=== PATIENT | female | born 1990 | race Two or more races ===

== ENCOUNTER 2022-04-08 12:06 | Inpatient (IN) ==
[2022-04-08] MEDS ORDERED: BETAMETH SOD PHOS/ACETATE IA 6 MG/ML IM STA (12:47)
[2022-04-08] MEDS ORDERED: LACTATED RINGER'S 500 ML IV ONE (12:56)
[2022-04-08 13:21] LABS: Basophils # (auto) 0.02 K/uL (0-0.2); Basophils % (auto) 0.2 %; Eosinophils # (auto) 0.05 K/uL (0-0.50); Eosinophils % (auto) 0.6 %; Hematocrit (blood only) 35.8 % (34.1-44.9); Hemoglobin 12.2 g/dl (12.0-16.0); Immature Granulocytes # (auto) 0.04 K/uL (0.00-0.02); Immature Granulocytes % (auto) 0.5 %; Lymphocytes # (auto) 1.42 K/uL (1.2-3.4); Lymphocytes % (auto) 17.2 %; Mean Corpuscular Hemoglobin 31.4 pg (25.0-34.0); Mean Corpuscular Hgb Conc 34.1 g/dL (32.0-36.0); Mean Corpuscular Volume 92.3 fL (80.0-100.0); Mean Platelet Volume 11.7 fL (9.4-12.3); Monocytes # (auto) 0.67 K/uL (0.24-0.82); Monocytes % (auto) 8.1 %; Neutrophils # (auto) 6.06 K/uL (1.4-6.5); Neutrophils % (auto) 73.4 %; Platelet Count 206 K/uL (130-400); RDW Coefficient of Variation 14.1 % (11.5-14.5); RDW Standard Deviation 47.6 fL (36.4-46.3); Red Blood Count 3.88 M/uL (3.93-5.22); White Blood Count 8.26 K/ul (4.8-10.8)
[2022-04-08] MEDS: LACTATED RINGER'S 1,000 ML IV PRN ×2 (13:30→17:50)
--- NOTE | 2022-04-08 13:45 | History & Physical Report ---
Date of Service April 08, 2022 Assessment & Plan (1) contractions: Plan: Will monitor FHT, contractions, and plan for re-exam of cervix in 2 hours. Will give IV fluids, steroids for lung maturity . History of Present Illness Chief Complaint: contractions Primary Care Provider: PHOEBE PCP 31yo @ 34 06/28, presented to L&D today with contractions. Started with low back pains yesterday, which resolved, and then this morning started feeling abdominal/pelvic pains and had pink discharge followed by brown discharge. + movement. No bright red blood. No leaking fluid. No recent illness. No recent intercourse. Has only had a small amount of food today. Drinking water. and Delivery Plans COVID POSITIVE 09/27/21 lsil Pap/ +HPV @ 16wk visit. *Recommend Colpo--done 12/21, small endocervical polyp noted, no significant cervical abnl, path negative *pap with typed HPV and colpo pp. Repeat pap & colposcopy after delivery GDM w/16wk glucola *Begin monthly Growth US's @24wks Left renal dilation (moderate @ 20wk) in male fetus MFM consult (pt declined at 24wk) MFM consult (accepted at 28wk) @ [facility] on 02/08/22 *significant hydronephrosis, she is to see Dr. Leo- pediatric urologist at [facility] *follow up monthly renal size and DVP MFM consult with u/s @ [facility] 03/21/22 - Q4 week growth and renal eval. Peds urology consult 03/26/22 - Note in Chart - Can delivery at [facility] unless bladder outlet obstruction is suspected - Not suspected by imaging to date - renal US - Recommended that peds notify Peds Urology at [facility] about imaging results f/u u/s with [facility]-04/19/22 Allergies Allergy/AdvReac Type Severity Reaction Status Date / Time No Known Allergies Allergy Verified 04/04/22 13:40 Home Medications Medication Instructions Recorded Confirmed Type prenat.vits,archie,por-icxl-ahkxw 1 tab PO DAILY 11/16/21 04/04/22 History ferrous sulfate [Iron (ferrous PO 01/29/22 04/04/22 History sulfate)] omeprazole 20 mg capsule,delayed See Rx Instructions .Route 04/01/22 04/04/22 Rx release .COMPLEX #30 caps Patient History Family History (Updated 11/16/21 @ 14:21 by Maddy Venegas) Mother Diabetes Dyslipidemia Hypertension Father Diabetes Grandmother Myocardial infarction Uncle Myocardial infarction Social History (Updated 11/16/21 @ 14:23 by Maddy Venegas) Smoking Status: Never smoker Hx Alcohol Use: No Hx Substance Use: No Preferred Language: Hebrew Communication Ability: Effective Marketing Account Executive Required: No Beliefs That Will Affect Care: Scientology Scientology Beliefs: Baptist marital status: marital status details: Aunt Yolanda Camargo [phone] Current Living Situation: Alone Current Living Situation Comment: in miliary in [facility] Assistive Devices: Glasses Review of Systems All systems reviewed & are unremarkable except as noted in HPI & below Physical Exam Physical Exam: FHT Cat 1 [place] Q 2-4 min Sterile spec exam: cervical mucus at os. No red blood. No evidence of rupture. Digital exam: cervix 1/50/-3 Limited bedside US: cephalic, anterior placenta. + movement. + cardiac activity. Constitutional: WD/WN, vitals as above Respiratory: no respiratory distress Cardiovascular: Rate/Rhythm: regular rate and regular rhythm Gastrointestinal (Abdomen): Inspection/Auscultation: abdomen normal to inspection Percussion/Palpation: abdomen soft; abdomen nontender Gravid. No s/s chorio or abruption. Skin: no rashes, warm and dry Psychiatric: A+Ox3, euthymic affect Results & Data ([facility]) Vital Signs (Past 12 Hours) Vital Signs Temp Pulse BP Pulse Ox 04/08/22 13:38 108 H 95 04/08/22 13:33 104 H 97 04/08/22 13:28 105 H 95 04/08/22 13:23 106 H 98 04/08/22 13:18 113 H 98 04/08/22 13:13 108 H 96 04/08/22 13:08 116 H 95 04/08/22 13:03 112 H 95 04/08/22 12:58 120 H 95 04/08/22 12:53 112 H 96 04/08/22 12:48 125 H 94 04/08/22 12:46 121 H 126/81 04/08/22 12:43 115 H 95 04/08/22 12:40 126 H 123/80 04/08/22 12:38 115 H 96 04/08/22 12:35 107 H 128/81 04/08/22 12:33 118 H 96 04/08/22 12:31 120 H 116/71 04/08/22 12:28 121 H 94 04/08/22 12:25 123 H 111/66 04/08/22 12:19 36.7 C 117 H 130/80 Coding Level of Care Code None Diagnoses contractions O47.00
--- NOTE | 2022-04-08 15:54 | Obstetrical Progress Note ---
Date of Service April 08, 2022 Subjective Patient states she is still feeling ctx, not in a regular pattern, but feeling the contractions themselves stronger. A small amount of pink discharge since first exam. FHT Cat 1 [place] Q 2-8 min Cervix exam unchanged /-3 - very uncomfortable exam for patient. She has not eaten much today - will allow patient to eat and continue to monitor status. We discussed that at this time, she is kailash but cervix has not made change. If she does, in fact, returned telephone equipment appraiser to be in labor, we discussed the risks vs benefits of staying at [facility] vs transfer to a tertiary hospital with a NICU. I have discussed the case with on-call furniture installer, Dr Chiu. He feels that if baby is doing well after delivery, he might not need transfer. However, if baby ends up needing a higher level of nursery support, baby would need to be transferred after delivery. Sometimes 34w babies do well after delivery, sometimes they need additional care. Patient would prefer to stay at [facility] if possible, as her access to Sarah would be challenging - she lives here and her mother is staying with her, but they do not have a car. She would need to depend on friends from her graduate program to help her with transport. JOSHUA is not in the [place] right now - he serves in the in [place], and is unable to take leave until just before pt's due date. We discussed that there is a good chance the baby may need to be transferred to a NICU after delivery due to prematurity, but we do not know this for sure. Will plan for her to have a meal and continue monitoring FHT and tocometer. She agrees with this plan. Results & Data ([facility]) Vital Signs (Past 12 Hours) Vital Signs Temp Pulse BP Pulse Ox 04/08/22 15:41 106 H 04/08/22 15:41 132/73 04/08/22 13:38 108 H 95 04/08/22 13:33 104 H 97 04/08/22 13:28 105 H 95 04/08/22 13:23 106 H 98 04/08/22 13:18 113 H 98 04/08/22 13:13 108 H 96 04/08/22 13:08 116 H 95 04/08/22 13:03 112 H 95 04/08/22 12:58 120 H 95 04/08/22 12:53 112 H 96 04/08/22 12:48 125 H 94 04/08/22 12:46 121 H 126/81 04/08/22 12:43 115 H 95 04/08/22 12:40 126 H 123/80 04/08/22 12:38 115 H 96 04/08/22 12:35 107 H 128/81 04/08/22 12:33 118 H 96 04/08/22 12:31 120 H 116/71 04/08/22 12:28 121 H 94 04/08/22 12:25 123 H 111/66 04/08/22 12:19 36.7 C 117 H 130/80 PG Care Time/CCT Total # of Minutes Spent Total Time Spent with Patient: Total time spent is greater than 50% in coordination of care (as documented) at patient's floor/unit and/or counseling patient: Coding Level of Care Code None
[2022-04-08] MEDS ORDERED: ACETAMINOPHEN 500 MG TAB PO PRN (20:01)
--- NOTE | 2022-04-08 20:05 | Obstetrical Progress Note ---
Date of Service April 08, 2022 Subjective Patient is at times very uncomfortable with painful contractions. At other times, feels ok. FHT Cat 1 [place] - has some runs of Q2 min ctx, then at times spaces ctx out to Q 8 min Cervix unchanged. /-3. Exam very uncomfortable. Some cervical mucus came out with glove. Given her contractions, and her discomfort, will continue monitoring and will plan to recheck in AM. Patient is anxious about labor. She is aware that if she turns out to be in labor, if the baby delivers here, there is a possibility of him needing transfer to a larger hospital with NICU, she would prefer that baby be transferred after delivery if needed rather than her being transferred now. Results & Data ([facility]) Vital Signs (Past 12 Hours) Vital Signs Temp Pulse Resp BP Pulse Ox 04/08/22 19:22 36.7 C 18 04/08/22 19:28 122 H 04/08/22 19:28 111/70 04/08/22 19:17 121 H 04/08/22 19:17 131/70 04/08/22 15:41 106 H 04/08/22 15:41 132/73 04/08/22 13:38 108 H 95 04/08/22 13:33 104 H 97 04/08/22 13:28 105 H 95 04/08/22 13:23 106 H 98 04/08/22 13:18 113 H 98 04/08/22 13:13 108 H 96 04/08/22 13:08 116 H 95 04/08/22 13:03 112 H 95 04/08/22 12:58 120 H 95 04/08/22 12:53 112 H 96 04/08/22 12:48 125 H 94 04/08/22 12:46 121 H 126/81 04/08/22 12:43 115 H 95 04/08/22 12:40 126 H 123/80 04/08/22 12:38 115 H 96 04/08/22 12:35 107 H 128/81 04/08/22 12:33 118 H 96 04/08/22 12:31 120 H 116/71 04/08/22 12:28 121 H 94 04/08/22 12:25 123 H 111/66 04/08/22 12:19 36.7 C 117 H 130/80 PG Care Time/CCT Total # of Minutes Spent Total Time Spent with Patient: Total time spent is greater than 50% in coordination of care (as documented) at patient's floor/unit and/or counseling patient: Coding Level of Care Code None
[2022-04-08] MEDS ORDERED: BUTORPHANOL TARTRATE 1 MG/ML VIAL IV PRN (21:53)
[2022-04-09] MEDS ORDERED: MoRPHine SULFATE 10 MG/ML CARP/VIAL IM STA (00:35)
[2022-04-09] MEDS ORDERED: PROMETHAZINE HCL INJ 25 MG/ML 1 ML VIAL IM STA (00:36)
[2022-04-09] MEDS ORDERED: ePHEDrine sulfate 50 MG/ML AMP ONE (02:59)
[2022-04-09] MEDS ORDERED: BUPIVACAINE 0.25% 30 ML VIAL ONE (02:59)
[2022-04-09] MEDS ORDERED: LIDOCAINE 2%/EPINEPHRINE 1:200,000 20 ML SDV ONE (02:59)
[2022-04-09] MEDS ORDERED: fentaNYL 2MCG/ML ROPIVACAINE 1.25MG/ML 100 ML BAG EPI ONE (02:59)
[2022-04-09] MEDS ORDERED: fentaNYL citrate 100 MCG/2 ML VIAL ONE (02:59)
[2022-04-09] MEDS ORDERED: SODIUM CHLORIDE 0.9% INJ 10 ML VIAL ONE (02:59)
--- NOTE | 2022-04-09 03:03 | Labor Progress Brief Note ---
Date of Service April 09, 2022 Subjective Patient has been feeling significant pain over the past few hours with ctx. At approx 12:30a she was reporting severe pain and was examined by RN while I was in , found to have the same cervical exam as my prior check (/- 3) and was given morphine/phenergan in hopes of making her more comfortable and allowing her to get rest. She now is reporting more pain, feeling like it is worsening, and asked for me to see her an examine her again. I examined her cervix, and found her to be approximately 8/100/0 - difficult exam due to her pain. This is significantly different than exam by RN at 12:30a. Will request epidural. PCN G for GBS unknown. Results & Data ([facility]) Vital Signs (Past 12 Hours) Vital Signs Temp Pulse Resp BP Pulse Ox 04/08/22 19:22 36.7 C 18 04/09/22 02:55 99 H 100 04/09/22 02:50 93 H 95 04/09/22 02:51 91 H 93 04/09/22 02:45 103 H 98 04/09/22 02:40 111 H 99 04/09/22 02:35 110 H 98 04/09/22 02:33 91 H 92 04/09/22 02:30 109 H 97 04/09/22 02:25 109 H 97 04/09/22 02:20 112 H 97 04/09/22 02:15 115 H 97 04/09/22 02:10 99 04/09/22 02:10 119 H 04/09/22 02:10 95 H 93 04/09/22 02:05 94 H 97 04/09/22 02:02 101 H 92 04/09/22 02:00 114 H 98 04/09/22 01:55 117 H 97 04/09/22 01:54 100 H 90 04/09/22 01:50 107 H 95 04/09/22 01:45 98 H 96 04/09/22 01:40 118 H 96 04/09/22 01:35 113 H 96 04/09/22 01:30 120 H 97 04/09/22 01:25 119 H 98 04/09/22 01:20 123 H 98 04/09/22 01:15 109 H 97 04/09/22 01:10 101 H 98 04/09/22 01:05 113 H 98 04/09/22 01:00 121 H 98 04/09/22 00:55 116 H 98 04/09/22 00:50 119 H 97 04/09/22 00:45 117 H 98 04/09/22 00:40 118 H 96 04/08/22 22:29 18 04/08/22 22:29 36.5 C 18 04/08/22 22:29 118 H 04/08/22 22:29 119/68 04/08/22 19:28 18 04/08/22 19:28 36.7 C 18 04/08/22 19:28 122 H 04/08/22 19:28 111/70 04/08/22 19:17 121 H 04/08/22 19:17 131/70 04/08/22 15:41 106 H 04/08/22 15:41 132/73 Coding Level of Care Code None
[2022-04-09] MEDS ORDERED: PENICILLIN G POTASSIUM 6 MU in DEXTROSE 5% 250 ML IV STA (03:04)
[2022-04-09] MEDS ORDERED: fentaNYL 2MCG/ML ROPIVACAINE 1.25MG/ML 100 ML BAG EPI PRN (03:27)
[2022-04-09] MEDS ORDERED: NALOXONE HCL 1 MG in SODIUM CHLORIDE 0.9% 1000ML 1,000 ML IV PRN (03:27)
[2022-04-09] MEDS ORDERED: NALOXONE HCL 0.4 MG/1 ML VIAL/CARP IV PRN (03:27)
[2022-04-09] MEDS ORDERED: NALBUPHINE HCL INJ 10 MG/ML AMP IV PRN (03:27)
[2022-04-09] MEDS ORDERED: diphenhydrAMINE 50 MG/ML VIAL IV PRN (03:27)
[2022-04-09] MEDS ORDERED: ePHEDrine sulfate 50 MG/ML AMP IV PRN (03:27)
--- NOTE | 2022-04-09 03:27 | Anesthesiology Consultation ---
Date of Service April 09, 2022 Assessment & Plan (1) Encounter for pre-operative examination: Chart Review Chart Review: Patient NOT seen in Pre Admission Testing and Acceptable Risk for Labor Epidural Consults Requested none History Height/Weight Height: 5 ft 1 in Weight: 69.853 kg Allergies Allergy/AdvReac Type Severity Reaction Status Date / Time No Known Allergies Allergy Verified 04/04/22 13:40 Medications Home Medications Medication Instructions Recorded Confirmed Last Taken prenat.vits,archie,kon-wtav-skrnb 1 tab PO DAILY 11/16/21 04/04/22 Unknown ferrous sulfate [Iron (ferrous PO 01/29/22 04/04/22 Unknown sulfate)] omeprazole 20 mg capsule,delayed See Rx Instructions .Route 04/01/22 04/04/22 Unknown release .COMPLEX #30 caps Active Medications Generic Name Dose Route Start Last Admin Trade Name Freq PRN Reason Stop Dose Admin Acetaminophen 1,000 mg 04/08/22 20:01 04/08/22 20:17 Acetaminophen 500 Mg Tab PO 05/08/22 20:00 1,000 mg Q8H PRN Administration Pain Butorphanol Tartrate 1 mg 04/08/22 21:53 04/08/22 21:58 Butorphanol Tartrate 1 Mg/Ml Vial IV 05/08/22 21:52 1 mg Q2HWA PRN Administration Pain Lactated Ringer's 1,000 mls @ 125 mls/hr 04/08/22 12:47 04/09/22 03:01 Lr IV 05/08/22 12:46 Infused .Q8H PRN Infusion L&D Protocol Protocol Past Family History Family History Mother Diabetes Dyslipidemia Hypertension Father Diabetes Grandmother Myocardial infarction Uncle Myocardial infarction Social History Smoking Status: Never smoker Hx Alcohol Use: No Hx Substance Use: No Physical Exam Vital Signs Last Vital Signs Temp 97.7 F 04/08/22 22:29 Pulse 114 H 04/09/22 03:25 Resp 18 04/08/22 22:29 BP 119/68 04/08/22 22:29 Pulse Ox 98 04/09/22 03:25 Testing Laboratory Results 04/08/22 13:05 04/08/22 13:05
[2022-04-09] MEDS: LACTATED RINGER'S 1,000 ML IV PRN (03:28)
[2022-04-09] MEDS ORDERED: PENICILLIN G POTASSIUM 3 MU in DEXTROSE 5% 100 ML IV PRN (06:05)
[2022-04-09] MEDS: OXYTOCIN 30 UNITS/500ML NSS IV ONE ×2 (07:58→10:55)
[2022-04-09] MEDS ORDERED: LIDOCAINE 1% LOCAL 20 ML VIAL ONE ×2 (08:02→10:32)
[2022-04-09] MEDS ORDERED: OXYTOCIN 30 UNITS/500 ML BAG IV PRN (08:27)
[2022-04-09] MEDS ORDERED: DIPHTHERIA/TETANUS/PERTUSSIS 0.5mL SYR/VIAL (Age 7+yrs) IM ONE (08:27)
[2022-04-09] MEDS ORDERED: bisacodyL 10 MG SUPP PR PRN (08:27)
[2022-04-09] MEDS ORDERED: BENZOCAINE 20% AER SPR 82.5 GM CAN EXT PRN (08:27)
[2022-04-09] MEDS ORDERED: HYDROCORTISONE ACETATE 25 MG SUPP PR PRN (08:27)
--- NOTE | 2022-04-09 08:32 | Delivery Summary ---
Vaginal Delivery Summary Date of Service April 09, 2022 Vaginal Delivery Summary and 2nd Degree LAC Vaginal Delivery Summary: Pre-delivery diagnoses: 31yo @ 34 5/7, labor, GDMA1, renal dilation Post-delivery diagnoses: same Procedure: spontaneous vaginal delivery, repair of 2nd degree perineal laceration Surgeon: Ashley Clayton DO Complications: none Findings: Viable male . Apgars: 9/9. Weight pending, please see nursery records. Estimated blood loss: 300ml Description of delivery: The patient progressed to complete with epidural anesthesia. She then began to push. She spontaneously vaginally delivered a viable from the cephalic presentation. The head delivered in KONSTANTIN position. The anterior shoulder delivered, followed by the posterior shoulder, followed by the body. No nuchal. The baby was placed on mother's abdomen and a spontaneous cry was heard. Delayed cord clamping was employed, and the cord was doubly clamped and cut. A segment was retained for cord gases. Cord blood was obtained. The placenta was delivered spontaneously intact with a 3-vessel cord. The uterus and vagina were swept of clots and debris. IV pitocin was given. The uterus became firm. The cervix, vagina, and perineum were inspected and a 2nd degree perineal laceration was noted and repaired with 3-0 Vicryl in standard fashion. There was a small amount of oozing from the perineal laceration - an additional zpzxwq-lb-llcil stitch was used, however each time the needle passed through the edematous tissue, it continued oozing further. Mere powder and direct pressure from 3 Raytec sponges was used to obtain hemostasis. Excellent hemostasis was observed. Will plan to keep sponges (and pressure) in place for the recovery time, will continue epidural during that time, and will plan to remove and reevaluate at that time. The mother and baby are recovering in stable and good condition in the room. Sponge, needle and instrument counts were correct x 2. Ashley Clayton DO [facility] Vaginal Delivery Charge Vaginal Delivery Codes: 43805 global code for the antepartum, delivery, and post- Delivery Type Details: and 2nd Degree LAC
[2022-04-09 09:06] LABS: Base Excess Cord Arterial Bld -5.5 mEq/L (-9-1.8); CO2 Cord Arterial Blood 54 mmHg (39.1-73.5); HCO3 Cord Arterial Blood 23 mmol/L (19.7-28.5); Oxygen Sat Cord Arterial Blood < 60.0 % (<60); PO2 Cord Arterial Blood 26 mmHg (4.1-31.7); pH Cord Arterial Blood 7.23 (7.1-7.38)
[2022-04-09 09:07] LABS: Base Excess Cord Venous Blood -5.1 mEq/L (-7.7-1.9); Cord Venous Blood HCO3 21 mmol/L (18.4-26.8); Cord Venous Blood PCO2 43 mmHg (30.4-57.2); Cord Venous Blood PO2 33 mmHg (14.1-43.3); O2 Saturation Cord Venous Bld 64.6 % (<68)
--- NOTE | 2022-04-09 10:50 | Obstetrical Progress Note ---
Date of Service April 09, 2022 Assessment & Plan Admission and Anticipated Discharge Date Admission Date: April 09, [address] Coleman had signed out earlier and spoken about of bleeding area on the posterior perineum she had left some sponges for packing and used Mere I evaluated after 2 hours note we let the epidural continue to run I examined there was a gap in the vaginal tissue just at the hymenal ring area that was bleeding discussed with the patient and we prepped the area and injected local anesthetic into the area and then closed with a 3-0 Vicryl several mjwroj-dk-fdaff sutures finally resulted in full hemostasis patient tolerated well sponge and instrument counts correct I would assess an extra 20 mL of blood loss at this time Results & Data ([facility]) Vital Signs (Past 12 Hours) Vital Signs Temp Pulse Resp BP Pulse Ox 04/09/22 10:43 129 H 103/53 L 04/09/22 10:28 127 H 112/51 L 04/09/22 10:13 116 H 105/58 L 04/09/22 09:58 116 H 106/61 04/09/22 09:43 123 H 102/59 L 04/09/22 09:28 122 H 105/60 04/09/22 09:13 123 H 109/62 04/09/22 08:58 117 H 105/62 04/09/22 08:50 115 H 112/62 04/09/22 08:30 121 H 92/58 L 04/09/22 08:13 116 H 135/70 04/09/22 08:01 121 H 100 04/09/22 07:58 122 H 128/60 04/09/22 07:56 121 H 100 04/09/22 07:51 126 H 100 04/09/22 07:46 139 H 99 04/09/22 07:44 82 L 04/09/22 07:44 133 H 04/09/22 07:44 134 H 134/61 04/09/22 07:41 119 H 98 04/09/22 07:39 122 H 94 04/09/22 07:36 98.2 F 132 H 18 100 04/09/22 07:31 125 H 98 04/09/22 07:29 150 H 191/98 H 04/09/22 07:26 127 H 100 04/09/22 07:25 123 H 87 L 04/09/22 07:21 122 H 97 01/17/23 07:16 125 H 100 04/09/22 07:13 122 H 115/75 04/09/22 07:11 123 H 100 04/09/22 07:06 127 H 100 04/09/22 07:01 124 H 100 04/09/22 06:59 118 H 107/55 L 04/09/22 06:56 124 H 100 04/09/22 06:51 117 H 100 04/09/22 06:46 110 H 100 04/09/22 06:43 111 H 112/57 L 04/09/22 06:41 115 H 100 04/09/22 06:36 114 H 100 04/09/22 06:31 116 H 100 04/09/22 06:30 114 H 129/75 04/09/22 06:26 114 H 100 04/09/22 06:21 120 H 99 04/09/22 06:16 119 H 100 04/09/22 06:15 98.1 F 123 H 18 114/53 L 04/09/22 06:11 94 04/09/22 06:11 118 H 04/09/22 06:11 116 H 92 04/09/22 06:05 114 H 100 04/09/22 06:00 104 H 100 04/09/22 05:58 107 H 117/56 L 04/09/22 05:55 105 H 99 04/09/22 05:50 105 H 100 04/09/22 05:45 104 H 100 04/09/22 05:44 112 H 127/61 04/09/22 05:40 113 H 100 04/09/22 05:35 106 H 100 04/09/22 05:30 106 H 100 04/09/22 05:29 110 H 128/60 04/09/22 05:25 110 H 100 04/09/22 05:20 111 H 100 04/09/22 05:15 112 H 100 04/09/22 05:14 112 H 127/64 04/09/22 05:10 106 H 100 04/09/22 05:05 106 H 100 04/09/22 05:00 101 H 100 04/09/22 04:59 106 H 119/60 93 04/09/22 04:55 113 H 92 04/09/22 04:52 107 H 84 L 04/09/22 04:50 115 H 100 04/09/22 04:45 114 H 100 04/09/22 04:44 120 H 107/55 L 04/09/22 04:40 114 H 99 04/09/22 04:35 111 H 100 04/09/22 04:30 110 H 100 04/09/22 04:27 117 H 129/61 04/09/22 04:25 108 H 99 04/09/22 04:23 111 H 121/58 L 04/09/22 04:20 113 H 96 04/09/22 04:18 110 H 104/54 L 04/09/22 04:15 109 H 100 04/09/22 04:11 113 H 114/60 04/09/22 04:10 114 H 99 04/09/22 04:08 110 H 114/59 L 04/09/22 04:05 103 H 99 04/09/22 04:06 90 93 04/09/22 04:02 108 H 129/68 04/09/22 04:00 116 H 99 04/09/22 03:55 118 H 99 04/09/22 03:56 115 H 120/63 04/09/22 03:54 112 H 117/55 L 04/09/22 03:52 114 H 124/66 04/09/22 03:50 112 H 119/65 100 04/09/22 03:48 110 H 116/62 04/09/22 03:45 114 H 100 04/09/22 03:46 115 H 129/74 04/09/22 03:40 116 H 99 04/09/22 03:35 107 H 97 04/09/22 03:32 102 H 91 04/09/22 03:30 116 H 98 04/09/22 03:25 98 04/09/22 03:25 114 H 04/09/22 03:25 101 H 91 04/09/22 03:20 109 H 99 04/09/22 03:18 104 H 92 04/09/22 03:15 113 H 96 04/09/22 03:10 116 H 98 04/09/22 03:05 97 H 100 04/09/22 03:00 85 L 04/09/22 03:00 100 H 04/09/22 03:00 97 H 89 L 04/09/22 02:55 99 H 100 04/09/22 02:50 93 H 95 04/09/22 02:51 91 H 93 04/09/22 02:45 103 H 98 04/09/22 02:40 111 H 99 04/09/22 02:35 110 H 98 04/09/22 02:33 91 H 92 04/09/22 02:30 109 H 97 04/09/22 02:25 109 H 97 04/09/22 02:20 112 H 97 04/09/22 02:15 115 H 97 04/09/22 02:10 99 04/09/22 02:10 119 H 04/09/22 02:10 95 H 93 04/09/22 02:05 94 H 97 04/09/22 02:02 101 H 92 04/09/22 02:00 114 H 98 04/09/22 01:55 117 H 97 04/09/22 01:54 100 H 90 04/09/22 01:50 107 H 95 04/09/22 01:45 98 H 96 04/09/22 01:40 118 H 96 04/09/22 01:35 113 H 96 04/09/22 01:30 120 H 97 04/09/22 01:25 119 H 98 04/09/22 01:20 123 H 98 04/09/22 01:15 109 H 97 04/09/22 01:10 101 H 98 04/09/22 01:05 113 H 98 04/09/22 01:00 121 H 98 04/09/22 00:55 116 H 98 04/09/22 00:50 119 H 97 04/09/22 00:45 117 H 98 04/09/22 00:40 118 H 96 PG Care Time/CCT Total # of Minutes Spent Total Time Spent with Patient: Total time spent is greater than 50% in coordination of care (as documented) at patient's floor/unit and/or counseling patient: Coding Level of Care Code None
[2022-04-09] MEDS: IBUPROFEN 600 MG TAB PO PRN ×2 (12:00→17:55)
--- NOTE | 2022-04-09 12:34 | Anesthesia Procedure Note ---
Date of Service April 09, 2022 Anesthesia Post Epidural Note Vital Signs Vital Signs: Temp Pulse Resp BP Pulse Ox 98.2 F 114 H 18 119/75 100 04/09/22 07:36 04/09/22 12:17 04/09/22 07:36 04/09/22 12:17 04/09/22 08:01 Pain Intensity Abdomen: Pain Intensity: 0 Notes Mental Status: alert / awake / arousable and participated in evaluation Nausea / Vomiting: adequately controlled Pain: adequately controlled Airway Patency, RR, SpO2: stable & adequate BP & HR: stable & adequate Hydration State: stable & adequate Neuraxial Anesthesia: was administered and sensory block is resolving Anesthetic Complications: no major complications apparent and Pt Satisfied with anesthetic care Epidural: Removed without complications and With tip intact
[2022-04-09] MEDS: ACETAMINOPHEN 325 MG TAB PO PRN ×2 (14:53→21:52)
[2022-04-09] MEDS: DOCUSATE SODIUM 100 MG CAP PO SCH (20:52)
[2022-04-10] MEDS: IBUPROFEN 600 MG TAB PO PRN ×5 (03:09→20:56)
--- NOTE | 2022-04-10 06:38 | Obstetrical Progress Note ---
Date of Service <Libby Hughes MD - Last Filed: 04/10/22 06:58> April 10, 2022 Assessment & Plan <Libby Hughes MD - Last Filed: 04/10/22 06:58> (1) care following vaginal delivery: 31y o/ @ 34 4/7, presented to L&D with contractions now PPD1. GBS + - treated with 1 dose of abx during labor. Tolerating PO. Encourage ambulation. Satisfactory post progress. Melisa Zhong MS3 contributed to the history and physical of this note. <Sandra Whittington MD, FACOG - Last Filed: 04/10/22 08:47> (1) care following vaginal delivery: Subjective <Libby Hughes MD - Last Filed: 04/10/22 06:58> Ambulation: ambulating normally Voiding: no voiding problems Passing Gas:: Yes Diet Tolerance:: regular diet Lochia:: Small Feeding Type:: breast feeding Physical Exam <Libby Hughes MD - Last Filed: 04/10/22 06:58> Constitutional WD/WN, vitals as above Respiratory no increased work of breathing Cardiovascular clinically well perfused Psychiatric A+Ox3, euthymic affect Results & Data ([facility]) <Libby Hughes MD - Last Filed: 04/10/22 06:58> Vital Signs (Past 12 Hours) Vital Signs Temp Pulse Resp BP Pulse Ox O2 Del Method 04/10/22 03:06 36.6 C 108 H 18 109/70 99 Room Air 04/09/22 22:57 36.7 C 116 H 22 103/69 97 Room Air 04/09/22 20:35 36.8 C 100 H 20 109/74 100 Room Air <Sandra Whittington MD, FACOG - Last Filed: 04/10/22 08:47> Co-Signing Physician Notes Resident Physician Supervision Note: I was present with Dr. Hughes during the history and exam. I discussed the case with the resident and agree with the findings and plan as documented in the note. Any exceptions or clarifications are listed here: [None] Documented By: Sandra Whittington MD, FACOG Resident Activity Tracking <Libby Hughes MD - Last Filed: 04/10/22 06:58> Resident Involvement: Resident Care Provided Care Provided: OB Delivery
[2022-04-10 06:56] LABS: Hematocrit (blood only) 33.1 % (34.1-44.9); Hemoglobin 11.1 g/dl (12.0-16.0); Mean Corpuscular Hemoglobin 31.9 pg (25.0-34.0); Mean Corpuscular Hgb Conc 33.5 g/dL (32.0-36.0); Mean Corpuscular Volume 95.1 fL (80.0-100.0); Mean Platelet Volume 11.5 fL (9.4-12.3); Nucleated RBC # (auto) 0.02 K/uL (0-0); Nucleated RBC % (auto) 0.1 %; Platelet Count 195 K/uL (130-400); RDW Coefficient of Variation 14.6 % (11.5-14.5); RDW Standard Deviation 49.7 fL (36.4-46.3); Red Blood Count 3.48 M/uL (3.93-5.22); White Blood Count 13.54 K/ul (4.8-10.8)
[2022-04-10] MEDS: DOCUSATE SODIUM 100 MG CAP PO SCH ×2 (07:51→20:56)
[2022-04-10] MEDS: PRENATAL VITAMIN 1 TAB PO SCH (07:52)
[2022-04-10] MEDS ORDERED: bisacodyL 5 MG TABEC PO SCH (20:00)
[2022-04-10] MEDS: ACETAMINOPHEN 325 MG TAB PO PRN (23:04)
--- NOTE | 2022-04-11 06:08 | Obstetrical Progress Note ---
Date of Service <Libby Hughes MD - Last Filed: 04/11/22 06:34> April 11, 2022 Assessment & Plan <Libby Hughes MD - Last Filed: 04/11/22 06:34> (1) care following vaginal delivery: 31y o/ @ 34 06/28, presented to L&D with contractions now PPD2. GBS + treated with 1 dose of abx during labor. Tolerating PO. Encourage ambulation. Satisfactory post progress. Melisanicole Jerezsusan MS3 contributed to the history and physical of this note. <Angelica Giron MD - Last Filed: 04/11/22 08:04> (1) care following vaginal delivery: Subjective <Libby Hughes MD - Last Filed: 04/11/22 06:34> Ambulation: ambulating normally Voiding: no voiding problems Passing Gas:: Yes Diet Tolerance:: regular diet Lochia:: Small Feeding Type:: breast feeding Review of Systems no f/c/SOB/CP/calf tenderness Physical Exam <Libby Hughes MD - Last Filed: 04/11/22 06:34> Constitutional WD/WN, vitals as above Respiratory normal respiratory effort, lungs clear to auscultation Cardiovascular RRR, no murmur, no edema Extremities: no calf tenderness Psychiatric A+Ox3, euthymic affect Results & Data ([facility]) <Libby Hughes MD - Last Filed: 04/11/22 06:34> Vital Signs (Past 12 Hours) Vital Signs Temp Pulse Resp BP Pulse Ox O2 Del Method 04/10/22 23:10 36.7 C 116 H 18 120/78 99 Room Air 04/10/22 20:20 Room Air 04/10/22 20:20 36.6 C 114 H 18 124/79 98 Room Air <Angelica Giron MD - Last Filed: 04/11/22 08:04> Co-Signing Physician Notes Resident Physician Supervision Note: I interviewed and examined the patient. Discussed with Dr. Hughes and agree with findings and plan as documented in the note. Any exceptions or clarifications are listed here: PP2 s/p , doing well. VSS, exam benign and wnl. Stable for d/c home today, may be nesting if baby stays and is not transferred Documented By: Angelica Giron MD Resident Activity Tracking <Libby Hughes MD - Last Filed: 04/11/22 06:34> Resident Involvement: Resident Care Provided Care Provided: OB Delivery
[2022-04-11] MEDS: IBUPROFEN 600 MG TAB PO PRN (06:09)
[2022-04-11 06:52] LABS: Hematocrit (blood only) 31.6 % (34.1-44.9); Hemoglobin 10.7 g/dl (12.0-16.0)
[2022-04-11] MEDS: DOCUSATE SODIUM 100 MG CAP PO SCH (09:09)
[2022-04-11] MEDS: ACETAMINOPHEN 325 MG TAB PO PRN (09:09)
[2022-04-11] MEDS: PRENATAL VITAMIN 1 TAB PO SCH (09:09)
[2022-04-11] MEDS ORDERED: ACETAMINOPHEN HOME PACK 500 MG TABLET PO PRN (10:04)
[2022-04-11] MEDS ORDERED: IBUPROFEN 600MG HOME PACK PO PRN (10:04)
[2022-04-11] MEDS ORDERED: ACETAMINOPHEN HOME PACK 500 MG TABLET PO SCH ×2 (10:29→10:37)
[2022-04-11] MEDS ORDERED: IBUPROFEN 600MG HOME PACK PO SCH (10:34)
== END 2022-04-11 10:55 | disposition home or self-care (01) | DRG 807 ==
LOC: OPB 12:06 → 4S1 12:07 → 4E2 04-09 12:45